=== PATIENT | female | born 1965 | race Caucasian/White ===

== ENCOUNTER 2020-08-27 11:35 | Emergency (ER) | payer MEDICAID, OTHER ==
[~2020-08-27] VITALS: Ht 160 cm; Wt 81.6 kg
--- NOTE | 2020-08-27 11:50 | ED Trauma-Multisystem ---
General Stated Complaint: BACK INJ Source of Information: Patient History of Present Illness Date Seen by Provider: Aug 27, 2020 Time Seen by Provider: 11:35 Initial Comments 54-year-old female presents by private vehicle, requested nurse assist to get into a wheelchair. Patient allegedly was bending over getting something out of the trunk of her car and states the wind knocked the trunk onto her back and presents with back pain, neck pain, headache and having difficulty moving. Otherwise poor historian on arrival. Allergies and Home Medications Allergies Coded Allergies: No Known Drug Allergies (Unverified , 08/27/20) Home Medications Ibuprofen 800 Mg Tablet, 800 MG PO Q8H PRN for PAIN Prescribed by: SALVATORE MANTILLA on 08/27/20 0228 Patient Home Medication List Home Medication List Reviewed: Yes Review of Systems Review of Systems Constitutional: see HPI; No fever, No malaise, No weakness Eyes: Denies Blindness, Denies Decreased Acuity, Denies Vision Changes Ears: Denies Dizziness, Denies Pain Respiratory: No cough, No short of breath Cardiovascular: Denies Chest Pain, Denies Lightheadedness Gastrointestinal: No abdominal pain, No nausea, No vomiting Musculoskeletal: back pain; No joint pain, No joint swelling; neck pain Skin: No change in color, No lesions, No lumps, No rash Psychiatric/Neurological: Headache; Denies Numbness Past Veknqro-Pdejxr-Otpahb Hx Past Med/Social Hx: Reviewed Nursing Past Med/Soc Hx Physical Exam Vital Signs Vital Signs - First Documented 08/27/20 11:45 Temp 36.8 Pulse 80 Resp 16 B/P (MAP) 142/88 (106) Pulse Ox 94 O2 Delivery Room Air Height, Weight, BMI Height: '" Weight: lbs. oz. kg; BMI Method: General Appearance: WD/WN, Anxious Head: No Evidence of Injury; No Active Bleeding, No Baptiste's Sign, No Contusions, No Ecchymosis, No Raccoon Eyes, No Swelling Eyes: Bilateral Eye Normal Inspection, Bilateral Eye PERRL, Bilateral Eye EOMI Neck: Full Range of Motion, Supple, Tender Lateral (diffuse, non-localized) Cardiovascular: Regular Rate, Rhythm, No Edema, Normal Peripheral Pulses Respiratory: Chest Non Tender, Lungs Clear, Normal Breath Sounds, No Accessory Muscle Use, No Respiratory Distress Gastrointestinal: Non Tender, Soft Back: Normal Inspection, No CVA Tenderness, Vertebral Tenderness (upper thoracic, non- localized) Extremity: Normal Capillary Refill, Normal Inspection, Normal Range of Motion, Non Tender Neurologic/Psychiatric: Alert, Oriented x3, No Motor/Sensory Deficits, Normal Mood/Affect Skin: Normal Color, Warm/Dry Progress/Results/Core Measures Results/Orders My Orders Orders - SALVATORE MANTILLA DO Ct Chest Wo (08/27/20 11:39) Ct Head/Cervical Spine Wo (08/27/20 11:39) Vital Signs/I&O 08/27/20 11:45 Temp 36.8 Pulse 80 Resp 16 B/P (MAP) 142/88 (106) Pulse Ox 94 O2 Delivery Room Air Progress Progress Note : Progress Note Patient industrially very histrionic on arrival. Exam findings were inconsistent and there were no visible findings of any injury, no ecchymosis or bruising or abrasion. Not given anything for pain, however patient was then resting asleep in the room. CT scans were normal without any acute findings. This was discussed with patient and advised outpatient follow-up with her PCP, she expresses understanding. Able to get up from the bed and into a wheelchair as nurse pushed her outdoors to her car. No restrictions of movement and in no distress with normal vital signs. Diagnostic Imaging Diagonstic Imaging: CT Comments Date of Exam:08/27/20 CT CHEST WO PROCEDURE: CT chest without contrast. TECHNIQUE: Multiple contiguous axial images were obtained through the chest without the use of intravenous contrast. Auto Exposure Controls were utilized during the CT exam to meet ALARA standards for radiation dose reduction. INDICATION: Blunt trauma to the back with pain. FINDINGS: There are no discrete pulmonary nodules, masses or infiltrates. There is no pleural or pericardial fluid. There is no pneumothorax. Heart size is normal. The thoracic aorta is normal in caliber. There is no pathologically enlarged adenopathy in the chest. The visualized intra-abdominal structures are unremarkable. There are degenerative changes in spine however there is no acute fracture or traumatic subluxation. IMPRESSION: No acute cardiopulmonary abnormality. Dictated on workstation # [id number] Dict: 08/27/20 1311 Trans: 08/27/20 1320 [facility] [id number] Interpreted by: BYRON ZAMORA MD Electronically signed by: IMPRESSION: No acute intracranial abnormality. Moderately severe cervical spondylosis and multilevel degenerative disc disease without acute fracture or traumatic subluxation. Departure Impression Primary Impression: Blunt head injury Qualified Codes: S09.8XXA - Other specified injuries of head, initial encounter Additional Impressions: Cervical strain, acute Qualified Codes: S16.1XXA - Strain of muscle, fascia and tendon at neck level, initial encounter Contusion, back Qualified Codes: S20.229A - Contusion of unspecified back wall of thorax, initial encounter Disposition: HOME, SELF-CARE Condition: Stable Departure-Patient Inst. Decision time for Depature: 13:37 Referrals: NO,LOCAL PHYSICIAN (PCP/Family) Primary Care Physician Patient Instructions: Minor Head Injury (DC), Neck Sprain (DC), Contusion (DC) Add. Discharge Instructions: Follow-up your primary care provider this week for evaluation for your injuries. At this time it does not appear to be any serious injury, fall instructions given and take the anti-inflammatory medication as needed for pain. Apply ice to painful areas and you may resume activities as tolerated. Scripts Ibuprofen (Ibuprofen) 800 Mg Tablet 800 MG PO Q8H PRN for PAIN, #30 TAB 0 Refills Prov: SALVATORE MANTILLA DO 08/27/20 SALVATORE MANTILLA DO Aug 27, 2020 11:50
--- NOTE | 2020-08-27 13:21 | Diagnostic Imaging Report ---
PROCEDURE: CT chest without contrast. TECHNIQUE: Multiple contiguous axial images were obtained through the chest without the use of intravenous contrast. Auto Exposure Controls were utilized during the CT exam to meet ALARA standards for radiation dose reduction. INDICATION: Blunt trauma to the back with pain. FINDINGS: There are no discrete pulmonary nodules, masses or infiltrates. There is no pleural or pericardial fluid. There is no pneumothorax. Heart size is normal. The thoracic aorta is normal in caliber. There is no pathologically enlarged adenopathy in the chest. The visualized intra-abdominal structures are unremarkable. There are degenerative changes in spine however there is no acute fracture or traumatic subluxation. IMPRESSION: No acute cardiopulmonary abnormality. Dictated by: Dictated on workstation # [id number]
--- NOTE | 2020-08-27 13:31 | Diagnostic Imaging Report ---
PROCEDURE: CT head and CT cervical spine without contrast. TECHNIQUE: Multiple contiguous axial images were obtained through the brain and cervical spine without the use of intravenous contrast. Sagittal and coronal reformations through the cervical spine were then performed. Auto Exposure Controls were utilized during the CT exam to meet ALARA standards for radiation dose reduction. INDICATION: Head and neck pain after head trauma. FINDINGS: The ventricles and sulci are within normal limits. There is no hydrocephalus. There is no midline shift. There is no mass, hemorrhage or extra-axial fluid collection. The calvarium is intact. Sinuses and mastoid air cells are clear. There is straightening of the normal cervical lordosis. There is multilevel degenerative disc disease. There is no fracture or traumatic subluxation. The odontoids intact and lateral masses are well aligned. Prevertebral soft tissues are within normal limits. IMPRESSION: No acute intracranial abnormality. Moderately severe cervical spondylosis and multilevel degenerative disc disease without acute fracture or traumatic subluxation. Dictated by: Dictated on workstation # [id number]
[2020-08-27] MEDS ORDERED: IBUP-1780 PO (13:38)
[2020-08-27 13:45] VITALS: BP 158/91
== END 2020-08-27 13:45 | disposition home or self-care (01) ==
LOC: ER FS 11:38
DX: S09.8XXA Other specified injuries of head, initial encounter (principal); S16.1XXA Strain of muscle, fascia and tendon at neck level, initial encounter; S20.229A Contusion of unspecified back wall of thorax, initial encounter; R51.9 Headache, unspecified; W20.8XXA Other cause of strike by thrown, projected or falling object, initial encounter
CPT/HCPCS: 70450; 71250; 72125